=== PATIENT | female | born 1960 | race Caucasian/White ===

== ENCOUNTER → 2020-05-14 08:10 | Outpatient (CLI) | payer BC, SELFPAY ==
--- NOTE | 2020-05-14 08:17 | BD_ITS ---
STUDY: DUAL ENERGY X-RAY ABSORPTIOMETRY / DXA REASON FOR EXAM: Female, 60 years old. 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 COMPARISON: None. FINDINGS: Lumbar Spine (L1-L4): g/cm2 (1.150) / T-score (-0.3) / Z-score (1.0) Findings are suggestive of normal bone density with a low fracture risk. Left Femur Total: g/cm2 (0.899) / T-score (-0.9) / Z-score (0.1) Left Femoral Neck: g/cm2 (0.860) / T-score (-1.3) / Z-score (0.0) Right Femur Total: g/cm2 (0.915) / T-score (-0.7) / Z-score (0.2) Right Femoral Neck: g/cm2 (0.883) / T-score (-1.1) / Z-score (0.2) BD/Dexa Bone Density Study IMPRESSION: The patient is considered osteopenic as outlined below according to World Robert Organization (WHO) criteria with a low fracture risk. Reference Information: The T-score is the number of standard deviations above or below the standard which is normal for young adults at their peak bone mineral density. The World Health Organization (WHO) interprets the T-scores as follows: Above -1 Normal bone density Between -1 and -2.5 Osteopenia Equal to / or below -2.5 Osteoporosis As a practical clinical guideline, osteopenia may be graded as follows: Mild -1 through -1.5 Moderate -1.6 through -2.0 Severe -2.1 through -2.4 The Z-score is the number of standard deviations above or below age-matched controls. A Z-score of less than -1.5 would be considered abnormal. References: 1. NIH Osteoporosis and Related Bone Diseases http://www.osteo.org 2. International Society for Clinical Densitometry http://www.iscd.org 3. National Osteoporosis Foundation http://www.nof.org Electronically Signed: Lawrence Lamb, at 12:51 EDT , Service support ,
== END ==
PROVIDERS: PCP Nurse Practitioner; Referring Provider Nurse Practitioner; Visit Provider Nurse Practitioner
DX: Z78.0 Asymptomatic menopausal state (principal)
CPT/HCPCS: 77080

== ENCOUNTER → 2020-06-05 08:01 | Outpatient (CLI) | payer BC, SELFPAY ==
[2014-07-14 19:25] VITALS: BMI 32.2
[2020-06-05 10:03] LABS: Erythrocyte Sedimentation Rate 3 mm/hr (0-30)
[2020-06-05 10:04] LABS: Absolute Lymphocyte Count 1.18 X10^3/uL (0.83-4.51); Absolute Neutrophil Count 4.7 X10^3/uL (2.0-7.7); Basophil# 0.02 X10^3/uL; Basophil% 0.3 % (0-1); Eosinophils% 1.6 % (0-5); Hematocrit 41.7 % (37-47); Hemoglobin 13.8 g/dL (12.0-15.0); Lymphocyte # 1.18 X10^3/ul (4.0); Lymphocyte % 18.6 % (19-41); Mean Corp Hgb Conc 33.1 g/dL (32-36); Mean Corpuscular Hgb 27.3 pg (27.0-32.0); Mean Corpuscular Volume 82.6 fL (81-99); Monocyte# 0.34 X10^3/uL; Monocyte% 5.3 % (0-10); NRBC Flagged by Analyzer 0 % (0-5); Neutrophil # 4.69 X10^3/uL (2.7-7.7); Neutrophil % 73.7 % (47-70); Platelet Count 267 K/mm3 (150-450); RBC Distribution Width CV 12.7 % (11.6-14.6); RBC Distribution Width SD 38.2 fl (35.1-43.9); Red Blood Count 5.05 M/mm3 (4.2-5.4); White Blood Count 6.4 K/mm3 (4.4-11.0)
[2020-06-05 10:36] LABS: ALB/GLOB Ratio 1.3 RATIO (0.9-2.4); AST(SGOT) 13 U/L (15-37); Alanine Aminotransfer ALT/SGPT 20 U/L (13-56); Albumin, Serum 3.8 g/dL (3.2-5.0); Alkaline Phosphatase 80 U/L (45-117); Anion Gap 3 (5-15); BUN 14 mg/dL (7-18); BUN/Creat Ratio 21.8 RATIO (10-20); CRP < 2.90 mg/L (0.0-3.0); Calcium,Total 9.1 mg/dL (8.5-10.1); Chloride 106 mmol/L (98-107); Creatinine, Serum 0.64 mg/dL (0.55-1.02); EST Glomerular Filtration Rate 100 mL/min (>60); Est Glom Filt Rate - Afr Amer 121 mL/min (>60); Globulin 2.9 g/dL (2.2-4.2); Glucose 105 mg/dL (74-106); Potassium 4.1 mmol/L (3.5-5.1); Protein, Total 6.7 g/dL (6.4-8.2); Rheumatoid Factor < 10.0 IU/mL (<15); Sodium Level 140 mmol/L (136-145)
[2020-06-05 10:47] LABS: Hepatitis B Surface Antibody Non-Reactive; Hepatitis B Surface Antigen Non-Reactive (Nonreactive); Hepatitis C Antibody Non-Reactive (Nonreactive)
[2020-06-06 16:34] LABS: ANTINUCLEAR ANTIBODIES DIRECT Negative (Negative)
[2020-06-10 16:03] LABS: CCP IgG Antibodies 2 units (0-19); HLA B27 Negative (.); Hepatitis B Core AB IgM Negative (Negative)
== END ==
PROVIDERS: PCP Nurse Practitioner; Referring Provider Internal Medicine Rheumatology; Visit Provider Internal Medicine Rheumatology
DX: M06.4 Inflammatory polyarthropathy (principal); M19.041 Primary osteoarthritis, right hand; M51.36 Other intervertebral disc degeneration, lumbar region; I10 Essential (primary) hypertension
CPT/HCPCS: 36415; 80053; 81374; 85025; 85652; 86038; 86140; 86200; 86431; 86705; 86706; 86803; 87340

== ENCOUNTER 2021-05-12 15:26 | Emergency (ER) | payer OTHER, SELFPAY ==
[2021-05-12 15:27] VITALS: BP 138/53; PULSE 60; RESP 16; TEMP 36.3; O2SAT 96; BMI 31.2
--- NOTE | 2021-05-12 15:43 | RAD_ITS ---
STUDY: X-RAY - RIGHT ANKLE REASON FOR EXAM: Female, 61 years old. FALL TECHNIQUE: 3 view(s) of the ankle. COMPARISON: None. FINDINGS: Normal visualized distal tibia and fibula. Nondisplaced transverse fracture of the lateral malleolus. Normal tibiotalar articulation and ankle mortise. Normal visualized talus and calcaneus. The visualized subtalar, talonavicular, calcaneocuboid and tarsal articulations are normal. Lateral soft tissue swelling. RAD/Ankle min 3 Views IMPRESSION: Nondisplaced transverse fracture of the lateral malleolus with overlying soft tissue swelling. Electronically Signed: Lawrence Lamb MD at 15:51 EDT , Service support ,
--- NOTE | 2021-05-12 16:17 | EDS_ITS ---
HPI History of Present Illness Chief Complaint: Lower Extremity Injury Detail of Chief Complaint: Injury to right ankle Informant: patient Narrative Narrative: Patient presents to the emergency department after injuring her right ankle today. Patient states that she tripped in the backyard and twisted her ankle. Patient had a hard time bearing weight afterwards. Patient denies any other injuries. [facility] Home Medications aspirin 81 mg PO DAILY@0800 #30 tab.chew 07/15/14 [Rx Last Taken Unknown] docusate sodium [Colace] 100 mg PO BID PRN PRN #60 capsule 07/15/14 [Rx Last Taken Unknown] oxycodone 5 mg PO Q4H PRN PRN #20 tablet 07/15/14 [Rx Last Taken Unknown] psyllium husk (aspartame) [Metamucil] 1 packet PO DAILY #30 packet 07/15/14 [Rx Last Taken Unknown] hydrocodone-acetaminophen 1 tab PO Q4H PRN PRN 2 Days #10 tablet 05/12/21 [Rx Last Taken Unknown] Allergy/AdvReac Type Severity Reaction Status Date / Time No Known Allergies Allergy Verified 05/12/21 15:29 Social History Smoking Status: Never smoker ROS ROS ED Constitutional Constitutional ED: Reports systems reviewed and no addt'l complaints, except as documented; Denies body ache(s), change in weight or chills Eyes Eyes: Denies acute decrease in peripheral vision, change in vision, double vision or loss of vision ENT ENT ED: Reports none; Denies ear pain, lip swelling, loss taste/smell, neck pain, otalgia or sore throat Cardiovascular Cardiovascular: Reports none; Denies abdominal pain, chest pain with activity, leg edema, lightheadedness, palpitations, rapid heart rate or syncope Respiratory/Chest Respiratory/Chest: Reports none; Denies change in mental status, dry cough, dyspnea, hemoptysis, shortness of breath at rest or shortness of breath with ex ertion Gastrointestinal Gastrointestinal: Reports none; Denies abdominal pain, change in stool characte r, diarrhea, hematemesis, hematochezia, melena, rectal bleeding or vomiting Genitourinary Genitourinary ED: Reports none; Denies abdominal discomfort, anuria, dysuria, genital pain or polyuria Musculoskeletal Musculoskeletal: Reports none and other Details: Right ankle pain ; Denies arthralgias, back pain, difficulty walking, extremity pain, muscle weakness or myalgias Integumentary Reports none; Denies abscess or rash Neurologic Neurologic: Reports none; Denies abnormal gait, confusion, focal weakness, frequent falls, headache(s), loss of vision, numbness, paresthesias, radicular pain, vertigo or weakness Psychiatric Psychiatric: Reports systems reviewed and no addt'l complaints, except as documented and none; Denies behavioral changes, confusion, difficulty concentrating, hallucinations, suicidal ideation, tactile hallucinations or visual hallucinations Endocrine Endocrinology: Denies none, cold intolerance, excessive sweating, fatigue or heat intolerance Hematologic/Lymphatic Hematologic/Lymphatic: Reports none; Denies anemia, easy bleeding or easy bruising Allergic/Immunologic Allergic/Immunologic ED: Denies as per HPI, none, lip swelling, mouth swelling, throat swelling, tongue swelling or hives EXAM Physical Exam Const Vital Signs: 05/12/21 15:27 Temperature 97.4 F L Temperature Source Temporal Pulse Rate 60 Respiratory Rate 16 Blood Pressure 138/53 H Blood Pressure Mean 81 Pulse Ox 96 Oxygen Delivery Method Room Air Positive well nourished and well developed General Appearance ED: well developed and NAD HEENT Reports TM's clear and moist mucous membranes normocephalic and atraumatic; Negative for trauma or tenderness Tympanic Membrane ED: Yes TM's clear Eyes PERRL and EOMs intact bilaterally General Eye ED: Negative for pale conjunctiva or scleral icterus Neck no lymphadenopathy, supple and no JVD General: Negative for tenderness Chest Wall inspection of chest normal and palpation of chest normal Chest: Negative for tenderness Resp normal respiratory effort and clear to auscultation bilaterally Effort and Inspection: Negative for respiratory distress or pain with movement Auscultation: Negative for rhonchi, wheezes or diminished lung sounds Cardio regular rate, regular rhythm, S1 normal heart sound, S2 normal heart sound and no murmurs Peripheral Pulses: pulses 2+ throughout GI normal to inspection, nondistended, normoactive bowel sounds, soft to palpation, non-tender, non-distended and no masses Back/Spine no CVA tenderness and no thoracic nor lumbar tenderness Extremity Extremity Narrative: Right leg-patient has some mild soft tissue swelling over the lateral malleolus with tenderness to palpation. There is no ecchymosis or bruising noted. She has no pain at the proximal fibular head or the base of the fifth metatarsal. She is neurovascular intact. General Extremety ED: Negative for edema General Extremity: Negative for edema Neuro oriented x3, CN's II-XII intact bilaterally, no sensory deficits noted and gait normal Sensorium / Orientation: awake, alert, oriented to person, oriented to place and oriented to time Motor Exam: strength 5/5 throughout and strength abnormal Psych mental status grossly normal Skin no rashes or lesions noted and no wounds MDM MDM MDM Narrative Medical decision making narrative: Patient will be placed in a walking boot and given a walker as she did not want to do crutches. Patient will be referred to orthopedics for follow-up in 3 to 5 days. Patient will be given a prescription for few [place] for pain. Patient advised to ice and elevate the extremity. Radiography Diagnostic Testing: Radiology Impression Ankle X-Ray 05/12/21 15:43 IMPRESSION: Nondisplaced transverse fracture of the lateral malleolus with overlying soft tissue swelling. Electronically Signed: Lawrence Lamb MD at 15:51 EDT , Service support , Three-view x-rays of right ankle obtained interpreted by myself as nondisplaced fracture at the tip of the distal fibula. Radiology in agreement. Discharge Plan Triage Chief Complaint: Lower Extremity Injury ED Provider: Evelin Vidal Dx/Rx/DC Orders Clinical Impression: Ankle fracture, right Instructions: ED Ankle Fracture, Distal Fibula Prescriptions: New hydrocodone-acetaminophen [hydrocodone-acetaminophen] 1 TABLET tablet 1 tab PO Q4H PRN PRN (Reason: Pain) 2 Days Qty: 10 RF: 0 No Action docusate sodium [DOK] 100 MG capsule 100 mg PO BID PRN PRN (Reason: Constipation) Qty: 60 RF: 0 aspirin 81 MG tablet,chewable 81 mg PO DAILY@0800 Qty: 30 RF: 0 oxycodone 5 MG tablet 5 mg PO Q4H PRN PRN (Reason: Pain) Qty: 20 RF: 0 psyllium husk (aspartame) [Metamucil Fiber Singles] 1 PACKET powder in packet 1 packet PO DAILY Qty: 30 RF: 0 Primary Care Provider: Giovanna Paige NP Referrals: Antolin Brown DO [STAFF PHYSICIAN] - 3-5 Days Giovanna Paige BINDING STITCHER, BINDING STITCHER-C [Primary Care Provider] - Disposition Disposition: Home, Self Care
[2021-05-12 16:52] VITALS: BP 142/69; PULSE 63
== END 2021-05-12 17:03 | disposition home or self-care (01) ==
LOC: ED 16:40
PROVIDERS: Emergency Provider Emergency Medicine; PCP Nurse Practitioner
DX: S82.891A Other fracture of right lower leg, initial encounter for closed fracture (principal); W18.40XA Slipping, tripping and stumbling without falling, unspecified, initial encounter
CPT/HCPCS: 73610; 99283

== ENCOUNTER → 2021-07-02 10:11 | Outpatient (CLI) | payer OTHER, SELFPAY | PROVIDERS: PCP Nurse Practitioner; Visit Provider Physician Assistant | DX: Z11.52 Encounter for screening for COVID-19 (principal) | CPT/HCPCS: 87635; U0005; U0003 ==

== ENCOUNTER 2021-07-15 06:42 | Emergency (ER) | payer OTHER, SELFPAY ==
[2021-07-15 06:43] VITALS: BP 118/59; PULSE 72; RESP 18; TEMP 36.8; O2SAT 96; BMI 31.2
--- NOTE | 2021-07-15 07:07 | EDS_ITS ---
HPI History of Present Illness Chief Complaint: Wound Narrative Narrative: 61-year-old female presenting with bruising over the left eye. She states he accidentally collided heads with her pet Labrador retriever on Tuesday. She notes that the bruising has descended down the medial aspect of her eye. She initially had a little bit of a headache but was but had no LOC. She has no dizziness, visual complaints. No nausea or vomiting. No pain within the eye itself. PFSH PFS Medical History History of brain tumor HTN (hypertension) Hx of radiation therapy Home Medications alprazolam 0.5 mg tablet 0.5 mg PO tab 05/18/21 [History Last Taken Unknown] lisinopril 20 mg tablet 20 mg PO tab 05/18/21 [History Last Taken Unknown] meloxicam 7.5 mg tablet 7.5 mg PO tab 05/18/21 [History Last Taken Unknown] Allergy/AdvReac Type Severity Reaction Status Date / Time No Known Allergies Allergy Verified 07/15/21 06:47 Surgical History History of ankle surgery Hx of breast reduction, elective Hx of hysterectomy Hx of rotator cuff surgery Social History Smoking Status: Never smoker ROS ROS ED Constitutional Constitutional ED: Denies chills or fever(s) Eyes Eyes: Denies blurry vision or diplopia ENT ENT ED: Denies rhinorrhea or sore throat Cardiovascular Cardiovascular: Denies chest pain or palpitations Respiratory/Chest Respiratory/Chest: Denies cough, dyspnea or sputum Gastrointestinal Gastrointestinal: Denies abdominal pain, nausea or vomiting Genitourinary Genitourinary ED: Denies dysuria or hematuria Musculoskeletal Musculoskeletal: Denies arthralgias or myalgias Integumentary Denies Abrasions or rash Neurologic Neurologic: Denies headache(s) or weakness EXAM Physical Exam Const Vital Signs: 07/15/21 06:43 Temperature 98.3 F Temperature Source Oral Pulse Rate 72 Respiratory Rate 18 Blood Pressure 118/59 L Blood Pressure Mean 78 Pulse Ox 96 Oxygen Delivery Method Room Air Positive well nourished General Appearance ED: NAD HEENT Reports moist mucous membranes Eyes PERRL and EOMs intact bilaterally Resp normal respiratory effort and clear to auscultation bilaterally Cardio regular rate and regular rhythm Psych mental status grossly normal Skin Skin Narrative: Bruising noted to the medial aspect of the left eye and in the knee nasal region. No nasal bone deformity. Nares are patent. No extraocular motion abnormalities. MDM MDM MDM Narrative Medical decision making narrative: Patient has bruising which is distended with gravity down her face onto the left eye. There is no obvious deformity of the forehead, nasal bone, periorbital area. No extraocular muscle entrapment. Patient has no headache, dizziness, nausea, vomiting, visual complaint. I think this is likely sequela of her collision with her. Dog. I do not believe she needs any work-up or imaging. Patient is counseled on this. Impression: 1. Closed head injury Discharge Plan Triage Chief Complaint: Wound ED Provider: Martin Galarza Dx/Rx/DC Orders Instructions: ED Eye Contusion Prescriptions: No Action meloxicam 7.5 mg tablet 7.5 mg PO RF: 0 alprazolam 0.5 mg tablet 0.5 mg PO RF: 0 lisinopril 20 mg tablet 20 mg PO RF: 0 Primary Care Provider: Giovanna Paige NP Referrals: Giovanna Paige STRAW HAT BRIM RAISER OPERATOR, STRAW HAT BRIM RAISER OPERATOR-C [Primary Care Provider] - Disposition Disposition: Home, Self Care
== END 2021-07-15 07:32 | disposition home or self-care (01) ==
PROVIDERS: Emergency Provider Student in an Organized Health Care Education/Training Program; PCP Nurse Practitioner
DX: S09.90XA Unspecified injury of head, initial encounter (principal); X58.XXXA Exposure to other specified factors, initial encounter; Z92.3 Personal history of irradiation
CPT/HCPCS: 99282

== ENCOUNTER 2022-07-08 15:51 | Emergency (ER) | payer OTHER, SELFPAY ==
[2022-07-08 15:51] VITALS: BP 100/87; PULSE 68; RESP 14; TEMP 36.5; O2SAT 98; BMI 31.2
--- NOTE | 2022-07-08 16:55 | RAD_ITS ---
STUDY: X-RAY - RIGHT CALCANEUS REASON FOR EXAM: Female, 62 years old. injury TECHNIQUE: AP and lateral view(s) of the calcaneus were obtained. COMPARISON: None. FINDINGS: Normal visualized calcaneus. RAD/Calcaneus min 2 Views IMPRESSION: Normal x-ray examination of the calcaneus. Electronically Signed: Rich Craig MD at 17:21 EST ,
--- NOTE | 2022-07-08 16:59 | ED.VIS.LOWEX ---
HPI <LUCY Tamayo - Last Filed: 07/08/22 18:31> History of Present Illness Chief Complaint: Lower Extremity Injury Narrative Narrative: Patient presents after injuring her R foot earlier this afternoon. She states she was getting out of her chair when her foot got stuck in her pants causing her to trip and hear a cracking noise. She is unsure which direction her foot went during the injury. Patient is able to ambulate on the foot with slight pain. She states she broke this ankle 1 year ago. She denies injury to any other extremities. Patient states she is also COVID-positive after testing positive on Tuesday. She denies any shortness of breath, difficulty breathing, or fever. PFSH <LUCY Tamayo - Last Filed: 07/08/22 18:31> [facility] Medical History Encounter for screening for COVID-19 History of brain tumor HTN (hypertension) Hx of radiation therapy URI (upper respiratory infection) Home Medications alprazolam 0.5 mg tablet 0.5 mg PO 05/18/21 [History Last Taken Unknown] lisinopril 20 mg tablet 20 mg PO 05/18/21 [History Last Taken Unknown] meloxicam 7.5 mg tablet 7.5 mg PO 05/18/21 [History Last Taken Unknown] benzonatate 200 mg capsule 200 mg PO TID PRN cough #30 caps 01/07/22 [Rx Last Taken Unknown] Allergy/AdvReac Type Severity Reaction Status Date / Time No Known Allergies Allergy Verified 07/08/22 16:10 Surgical History History of ankle surgery Hx of breast reduction, elective Hx of hysterectomy Hx of rotator cuff surgery Social History Smoking Status: Never smoker alcohol intake: current alcohol intake frequency: a few times a month ROS <LUCY Tamayo - Last Filed: 07/08/22 18:31> ROS ED Constitutional Constitutional ED: Denies chills, fever(s) or sweats Eyes Eyes: Denies change in vision ENT ENT ED: Reports rhinorrhea; Denies sore throat Cardiovascular Cardiovascular: Denies chest pain Respiratory/Chest Respiratory/Chest: Reports cough; Denies dyspnea, dyspnea on exertion, shortness of breath at rest or shortness of breath with exertion Gastrointestinal Gastrointestinal: Denies abdominal pain, diarrhea, nausea or vomiting Musculoskeletal Musculoskeletal: Reports other Details: Admits to pain and decreased range of motion in the right foot. Integumentary Denies Abrasions or rash Neurologic Neurologic: Denies headache(s) or weakness EXAM <LUCY Tamayo - Last Filed: 07/08/22 18:31> Physical Exam Const Vital Signs: 07/08/22 15:51 07/08/22 18:19 Temperature 97.7 F L Temperature Source Temporal Pulse Rate 68 Respiratory Rate 14 18 Blood Pressure 100/87 H Blood Pressure Mean 91 Pulse Ox 98 Oxygen Delivery Method Room Air Positive well nourished HEENT Reports moist mucous membranes normocephalic and atraumatic Eyes PERRL Neck full ROM and supple Resp normal respiratory effort, no retractions and clear to auscultation bilaterally Auscultation: Negative for rales, rhonchi, wheezes or diminished lung sounds Cardio regular rate, regular rhythm and no murmurs GI non-tender, non-distended and no masses Extremity Extremity Narrative: Patient has slightly decreased range of motion in the right foot due to pain. She has mild edema in the right ankle as well as tenderness along the ATFL and heel. The ankle joint is stable. No ecchymosis. She is able to bear weight onto her right foot. Neuro oriented x3, moves all extremities and no sensory deficits noted Sensorium / Orientation: alert Motor Exam: strength 5/5 throughout Psych mental status grossly normal Skin no wounds Lesions: no lesions Rashes: no rashes Trauma: Negative for abrasion or laceration <Dr. Yimi Jimenez MD - Last Filed: 07/08/22 23:12> Physical Exam Const Vital Signs: 07/08/22 15:51 07/08/22 18:19 Temperature 97.7 F L Temperature Source Temporal Pulse Rate 68 Respiratory Rate 14 18 Blood Pressure 100/87 H Blood Pressure Mean 91 Pulse Ox 98 Oxygen Delivery Method Room Air MDM <LUCY Tamayo - Last Filed: 07/08/22 18:31> MDM MDM Narrative Medical decision making narrative: Patient is able to bear weight onto her right foot. She states she does not need any pain control and is in minimal pain. She is stable and able to discharge home with an Aircast, [id number] pain control if needed, and RICE instructions with orthopedic follow-up if necessary. Patient states she does not need crutches and has a walker at home if needed. Radiography Diagnostic Testing: Clinical Impression(s) from Imaging Studies Os Calcis X-ray 07/08/22 16:55 IMPRESSION: Normal x-ray examination of the calcaneus. Electronically Signed: Rich Craig MD at 17:21 EST , Ankle X-Ray 07/08/22 17:44 IMPRESSION: Normal x-ray examination of the ankle. Electronically Signed: Rich Craig MD at 18:39 EST , X-rays of calcaneus and ankle reviewed, I agree with radiologist interpretation. X-rays have also been interpreted by the attending ED physician, he agrees with radiologist findings. <Dr. Yimi Jimenez MD - Last Filed: 07/08/22 23:12> MDM Radiography Diagnostic Testing: Clinical Impression(s) from Imaging Studies Os Calcis X-ray 07/08/22 16:55 IMPRESSION: Normal x-ray examination of the calcaneus. Electronically Signed: Rich Craig MD at 17:21 EST , Ankle X-Ray 07/08/22 17:44 IMPRESSION: Normal x-ray examination of the ankle. Electronically Signed: Rich Craig MD at 18:39 EST , Treatment and Re-Evaluation Narrative: Seen and evaluated independently and in conjunction with physician assistant professor of english. Agree with notes above unless documented otherwise. This patient did not know the exact mechanism that she injured the foot and ankle, but the findings are in the place consistent with an ankle sprain/inversion injury, and when I reproduced that, that recreated her pain. She was also tender at the calcaneus so we obtained x-rays of the ankle 3 views which on my interpretation are normal, and the calcaneus 2 views on my interpretation are normal as well. Patient has a stable ankle joint when I apply lateral stress. She is able to walk with the Aircast, supportive care advised along with NSAIDs and ice as needed. She is comfortable with that plan will follow-up with orthopedics if she does not improve in 2 weeks. Discharge Plan Triage Chief Complaint: Lower Extremity Injury ED Midlevel Provider: Marva Denney ED Provider: Yimi Jimenez Dx/Rx/DC Orders Clinical Impression: Right ankle sprain, COVID-19 Instructions: ED Ankle Sprain (Adult) Prescriptions: No Action meloxicam 7.5 mg tablet 7.5 mg PO Label Comments: TAKE 1 TABLET BY MOUTH EVERY DAY alprazolam 0.5 mg tablet 0.5 mg PO Label Comments: TAKE 1 TABLET BY MOUTH EVERY 8 HOURS NEEDED FOR ANXIETY lisinopril 20 mg tablet 20 mg PO benzonatate 200 mg capsule 200 mg PO TID PRN (Reason: cough) Qty: 30 0RF Primary Care Provider: Care Physician,No Primary Referrals: Orthopedic, your [Other] - 10-14 Days if not better Care Physician,No Primary [Primary Care Provider] - Activity Restrictions/Additional Instructions: Ice ankle for 15 minutes every 2-3 hours for the next day or two. Keep Aircast on ankle as long as you feel necessary for stability. Keep ankle elevated to minimize swelling. Follow-up with orthopedics if not better within 2 weeks. Avoid strenuous activities. Disposition Disposition: Home, Self Care Discharge Date/Time: 07/08/22 18:25
--- NOTE | 2022-07-08 17:44 | RAD_ITS ---
STUDY: X-RAY - RIGHT ANKLE REASON FOR EXAM: Female, 62 years old. injury TECHNIQUE: 3 view(s) of the ankle. COMPARISON: None. FINDINGS: Normal visualized distal tibia and fibula. Normal medial and lateral malleoli. Normal tibiotalar articulation and ankle mortise. Normal visualized talus and calcaneus. The visualized subtalar, talonavicular, calcaneocuboid and tarsal articulations are normal. The soft tissue structures are unremarkable. RAD/Ankle min 3 Views IMPRESSION: Normal x-ray examination of the ankle. Electronically Signed: Rich Craig MD at 18:39 EST ,
[2022-07-08 18:19] VITALS: RESP 18
== END 2022-07-08 18:25 | disposition home or self-care (01) ==
PROVIDERS: Emergency Provider Emergency Medicine; Visit Provider Emergency Medicine
DX: S93.401A Sprain of unspecified ligament of right ankle, initial encounter (principal); U07.1 COVID-19; X58.XXXA Exposure to other specified factors, initial encounter
CPT/HCPCS: 73610; 73650; 99283

== ENCOUNTER 2024-05-10 19:48 | Emergency (ER) | payer OTHER, SELFPAY ==
[2024-05-10 19:48] VITALS: BP 135/49; PULSE 60; RESP 16; TEMP 35.6; O2SAT 98; BMI 31.8
[2024-05-10 20:05] LABS: Squamous Epithelial Cells - UA 0 SEEN /hpf (5-10)
[2024-05-10 20:15] LABS: Color, Urine Yellow (Yellow); Glucose, Dipstick Normal (Normal); Ketone-Dipstick Negative (Negative); Leukocyte Esterase-Dipstick 100 /ul (Negative); Nitrite-Dipstick Negative (Negative); Occult Blood-Urine 150 /ul (Negative); Protein-Dipstick 100 mg/dl (Negative); Specific Gravity, Urine 1.025 (1.002-1.030); Urine Bilirubin Dipstick Negative (Negative); Urine Clarity Sl. Cloudy (Clear); Urine Urobilinogen Normal (Normal)
[2024-05-10 20:30] LABS: Bacteria 3+ /hpf (None Seen); Mucous, Urine 1+ /hpf (<or=2+); Red Blood Cells-Urine 0-5 SEEN /hpf (0-5); White Blood Cells >100 SEEN /hpf (0-5)
--- NOTE | 2024-05-10 20:51 | EDS_ITS ---
HPI HPI - Female History of Present Illness Chief Complaint: Complaint Informant: patient Narrative Narrative: 64-year-old female presenting to the emergency room with dysuria and suprapubic pain of 2-day duration. She denies any fever vomiting or flank pain. She is not typically get bladder infections. She denies any hematuria. She notes urinary frequency. [facility] Medical History Encounter for screening for COVID-19 URI (upper respiratory infection) Hx of radiation therapy History of brain tumor HTN (hypertension) Home Medications ?Medication ?Instructions ?Recorded ?Last Taken ?Type alprazolam 0.5 mg tablet 0.5 mg PO 05/18/21 Unknown History lisinopril 20 mg tablet 20 mg PO 05/18/21 Unknown History meloxicam 7.5 mg tablet 7.5 mg PO 05/18/21 Unknown History azithromycin 250 mg tablet See Rx Instructions PO .COMPLEX #6 10/17/22 Unknown Rx tabs benzonatate 200 mg capsule 200 mg PO TID PRN cough #30 caps 10/17/22 Unknown Rx Allergy/AdvReac Type Severity Reaction Status Date / Time No Known Allergies Allergy Verified 05/10/24 19:50 Surgical History History of ankle surgery Hx of rotator cuff surgery Hx of breast reduction, elective Hx of hysterectomy Social History Smoking Status: Never smoker alcohol intake: current alcohol intake frequency: a few times a month [facility] ED Constitutional Constitutional ED: Denies chills, fever(s) or weight loss Eyes Eyes: Denies change in vision or diplopia ENT ENT ED: Denies ear pain, rhinorrhea or sore throat Cardiovascular Cardiovascular: Denies chest pain, orthopnea, palpitations or racing heartbeat Respiratory/Chest Respiratory/Chest: Denies cough, dyspnea or orthopnea Gastrointestinal Gastrointestinal: Reports abdominal pain; Denies diarrhea, nausea or vomiting Genitourinary Genitourinary ED: Reports dysuria and urinary frequency; Denies hematuria Musculoskeletal Musculoskeletal: Reports other Details: Denies flank pain ; Denies arthralgias or myalgias Integumentary Denies abscess or rash Neurologic Neurologic: Denies headache(s) or weakness Psychiatric Psychiatric: Denies anxiety, depression, suicidal ideation or suicidal thoughts Endocrine Endocrinology: Denies polydipsia, polyphagia or polyuria Allergic/Immunologic Allergic/Immunologic ED: Denies mouth swelling, tongue swelling or urticaria EXAM Physical Exam Const Vital Signs: 05/10/24 19:48 Temperature 96.1 F L Temperature Source Temporal Pulse Rate 60 Respiratory Rate 16 Blood Pressure 135/49 H Blood Pressure Mean 77 Pulse Ox 98 Oxygen Delivery Method Room Air Positive well nourished and well developed General Appearance ED: well developed and NAD HEENT Reports normocephalic, head/scalp atraumatic and moist mucous membranes Eyes PERRL and EOMs intact bilaterally Neck no lymphadenopathy, supple and no JVD Resp normal respiratory effort and clear to auscultation bilaterally Cardio regular rate, regular rhythm and no murmurs GI Auscultation: normoactive bowel sounds Palpation: soft and tender suprapubic; Negative for guarding or rigid Back/Spine no CVA tenderness and normal ROM Extremity normal to inspection General Extremety ED: Negative for edema General Extremity: Negative for edema Neuro oriented x3 and CN's II-XII intact bilaterally Sensorium / Orientation: alert Motor Exam: strength 5/5 throughout Psych mental status grossly normal Mood & Affect: Negative for depressed or tearful Skin no rashes or lesions noted and no wounds MDM MDM MDM Narrative Medical decision making narrative: Differential diagnosis would include acute cystitis kidney infection diverticuli tis colitis pelvic abscess Clinically I think that this is a cystitis. Urinalysis is greater than 100 white cells 3+ bacteria positive leukocyte Estrace negative nitrates. This will be sent for culture. Patient be started on Azo as well as Macrobid. Would recommend primary care follow-up if not improving return if worsening. History & Record Review Discussion w/independent historian: Patient Lab Data Attestation: I reviewed the patient's lab results. Labs: Laboratory Results - last 24 hr 05/10/24 20:01 Urine Color Yellow Urine Clarity Sl. Cloudy Urine pH 6.0 Ur Specific [place] 1.025 Urine Protein 100 H Urine Glucose (UA) Normal Urine Ketones Negative Urine Occult Blood 150 H Urine Nitrite Negative Urine Bilirubin Negative Urine Urobilinogen Normal Ur Leukocyte Esterase 100 H Urine RBC 0-5 SEEN Urine WBC >100 SEEN Ur Squamous Epith Cells 0 SEEN Urine Bacteria 3+ Urine Mucus 1+ Discharge Plan Triage Chief Complaint: Complaint ED Provider: Julio Thakkar Dx/Rx/DC Orders Prescriptions: No Action meloxicam 7.5 mg tablet 7.5 mg PO Patient Comments: TAKE 1 TABLET BY MOUTH EVERY DAY alprazolam 0.5 mg tablet 0.5 mg PO Patient Comments: TAKE 1 TABLET BY MOUTH EVERY 8 HOURS NEEDED FOR ANXIETY lisinopril 20 mg tablet 20 mg PO azithromycin 250 mg tablet See Rx Instructions PO .COMPLEX Qty: 6 0RF Rx Instructions: For 250 mg dose pack: take 500 mg today (day 1), then 250 mg for 4 days (days 2-5) PO benzonatate 200 mg capsule 200 mg PO TID PRN (Reason: cough) Qty: 30 0RF Primary Care Provider: Care Physician,No Primary Referrals: Care Physician,No Primary [Primary Care Provider] - Print Language: Latvian
[2024-05-10] MEDS: Phenazopyridine 95 MG Tablet 190 MG PO (21:08)
[2024-05-10] MEDS: Nitrofurantoin Macrocrystals 100 MG Capsule PO (21:09)
[2024-05-10 21:12] VITALS: BP 131/56; PULSE 60; RESP 16; TEMP 35.6; O2SAT 97
== END 2024-05-10 21:13 | disposition home or self-care (01) ==
PROVIDERS: Emergency Provider Emergency Medicine; PCP Nurse Practitioner Family; Referring Provider Emergency Medicine; Visit Provider Emergency Medicine
DX: N30.91 Cystitis, unspecified with hematuria (principal)
CPT/HCPCS: 81001; 87077; 87086; 87088; 87186; 99283